=== PATIENT | male | born 1990 | race Caucasian/White ===

== ENCOUNTER 2022-07-06 10:40 | Emergency (ER) | payer BC, SELFPAY ==
[2022-07-06 10:46] VITALS: BP 140/92; PULSE 85; O2SAT 100
[2022-07-06 10:49] VITALS: BP 140/92; PULSE 75; RESP 16; O2SAT 100; BMI 24.3
--- NOTE | 2022-07-06 10:55 | DI.RAD.S_ITS ---
PROCEDURE: XR CHEST 1V INDICATIONS: chest pain TECHNIQUE: One view of the chest was acquired. COMPARISON: None. FINDINGS: Surgical changes and devices: None. Lungs and pleura: Lungs are clear. No pleural effusions or pneumothorax. Mediastinum: Mediastinal contours appear normal. Heart size is normal. Bones and chest wall: No suspicious bony lesions. Overlying soft tissues appear unremarkable. IMPRESSION: No acute cardiopulmonary abnormality. Approved by: Norm Arroyo M.D. on 07/06/2022 at 11:07
[2022-07-06 11:00] VITALS: PULSE 70; O2SAT 100
[2022-07-06 11:11] LABS: Add Manual Diff / Slide Review NO; Basophils Absolute Auto 0 /uL (0-100); Basophils Percent Auto 0.6 % (0-2); Eosinophils Absolute Auto 100 /uL (0-450); Eosinophils Percent Auto 1.3 % (2-4); Hematocrit 46.5 % (41-53); Hemoglobin 15.9 g/dL (13.5-17.5); Lymphocytes Absolute Auto 2100 /uL (1100-4500); Mean Corpuscular HGB Conc 34.2 % (30-36); Mean Corpuscular Hemoglobin 29.3 PG (26-34); Mean Corpuscular Volume 85.7 fL (80-100); Monocytes Absolute Auto 800 /uL (0-900); Monocytes Percent Auto 12.4 % (3-14); Neutrophils Absolute Auto 3100 /uL (1500-7000); Neutrophils Percent Auto 51.7 % (50-75); Platelet Count 184 X10^3/uL (150-400); Red Blood Cell Count 5.42 X10^6/uL (4.5-5.9); Red Cell Distribution Width 13.8 % (11.6-14.8)
[2022-07-06 11:20] LABS: INR 1.2 (0.9-1.3); Prothrombin Time 13.5 SECONDS (10.1-12.7)
[2022-07-06 11:22] LABS: D Dimer 236 ng/ml (<500)
[2022-07-06 11:23] LABS: PTT Partial Thromboplastin Tim 33 SECONDS (26-36)
[2022-07-06 11:24] LABS: Alanine Aminotransferase 44 IU/L (<50); Albumin 4.6 g/dL (3.5-5.0); Albumin Globulin Ratio 1.3 (1.0-2.8); Alkaline Phosphatase 75 U/L (38-126); Aspartate Aminotransferase 34 IU/L (17-59); BUN Creatinine Ratio 15.4 (6-22); Bilirubin Total 0.7 mg/dL (0.2-1.3); Blood Urea Nitrogen 12 mg/dL (9-20); Calcium 9.2 mg/dL (8.4-10.2); Carbon Dioxide 29 mmol/L (22-32); Chloride 101 mmol/L (98-107); Creatine Kinase 62 U/L (55-170); Estimated Glomerular Filt Rate > 60 mL/min (>60); Globulin 3.5 g/dL (1.7-4.1); Glucose 103 mg/dL (70-100); HEMOLYSIS < 15 (0-50); Lipase 100 U/L (23-300); Magnesium 2.2 mg/dL (1.6-2.3); Potassium 4.1 mmol/L (3.4-5.1); Sodium 139 mmol/L (137-145); Total Protein 8.1 g/dL (6.3-8.2)
[2022-07-06 11:30] VITALS: PULSE 67; O2SAT 100
[2022-07-06 11:35] LABS: Troponin I < 0.012 ng/mL (0.01-0.034)
[2022-07-06 12:00] VITALS: PULSE 73; O2SAT 98
--- NOTE | 2022-07-06 12:01 | ED_ITS ---
HPI - Chest Pain General Chief Complaint: Chest Pain Stated Complaint: sent from [facility]chest pressure Time Seen by Provider: 07/06/22 10:51 History of Present Illness HPI narrative: Patient is a 32-year-old male who has no past medical history presenting today with upper respiratory like symptoms and chest pressure. He reports that he had his 4th COVID booster 2 weeks ago since then he is had some upper respiratory like symptoms mild cough no fever and this morning he had some chest pressure. He went to a walk-in clinic run EKG was done and he was sent to the ED for further evaluation. Chest pressure is nonradiating it is very centralized. He denies any nausea vomiting shortness of breath. He did just get back from [place] for a . Related Data Allergies Allergy/AdvReac Type Severity Reaction Status Date / Time No Known Drug Allergies Allergy Verified 07/06/22 10:49 Review of Systems Review of Systems ROS Unobtainable: All systems reviewed & are unremarkable except as noted in HPI and below Exam Initial Vital Signs Initial Vital Signs: Vital Signs Pulse Rate 85 07/06/22 10:46 Blood Pressure 140/92 H 07/06/22 10:46 Pulse Oximetry 100 07/06/22 10:46 GENERAL: Alert pleasant well-appearing 32-year-old male and in no acute distress. HEENT: Head atraumatic,EOMI, pupils reactive, face symmetric, moist mucous membranes CARDIOVASCULAR: Regular rate and rhythm without murmurs, rubs or gallops. RESPIRATORY: Breath sounds equal bilaterally, no wheezes rales or rhonchi. ABDOMEN: Soft, nontender. Normoactive bowel sounds all 4 quadrants. No guarding or rebound. EXTREMITIES: Normal range of motion, no clubbing or edema. Neurovascularly intact NEUROLOGICAL: Alert and oriented x4. SKIN: Warm, dry, no laceration, no petechiae, no rashes or lesions. Scores PERC Score Age greater than or equal to 50 years: No Heart rate greater than or equal to 100 bpm: No Room Air O2 Sat less than 95%: No Unilateral leg swelling: No Recent trauma or surgery: No Hemoptysis: No Prior PE or DVT: No Hormone Use: No Total PERC Score: 0 Course Orders Ordered: ED Orders 07/06/22 10:55 XR chest 1V Stat EKG-12 Lead Stat 07/06/22 11:00 Complete Blood Count AUTO DIFF Stat Comprehensive Metabolic Panel Stat D Dimer Stat Lipase Stat Magnesium Stat PTT Partial Thromboplastin Scooter Stat Prothrombin Time INR Stat Troponin & CK Cardiac Panel Stat 07/06/22 11:30 COVID19 -Nasal RAPID Stat Vital Signs Vital signs: Vital Signs - 8 hr 07/06/22 10:49 07/06/22 10:46 07/06/22 10:46 Pulse Rate 75 85 Respiratory Rate 16 Blood Pressure 140/92 H 140/92 H Pulse Oximetry 100 100 Oxygen Delivery Method Room Air 07/06/22 11:00 07/06/22 11:30 07/06/22 12:00 Pulse Rate 70 67 73 Respiratory Rate Blood Pressure Pulse Oximetry 100 100 98 Oxygen Delivery Method 07/06/22 12:28 07/06/22 12:28 Pulse Rate 71 Respiratory Rate Blood Pressure 130/87 Pulse Oximetry 100 Oxygen Delivery Method Room Air MDM - Chest Pain Lab Data 07/06/22 11:00 07/06/22 11:00 Labs: Lab Results 07/06/22 07/06/22 07/06/22 Range/Units 11:00 11:00 11:00 WBC 6.0 (4.5-11.0) X10^3/uL RBC 5.42 (4.5-5.9) X10^6/uL Hgb 15.9 (13.5-17.5) g/dL Hct 46.5 (41-53) % MCV 85.7 (80-100) fL MCH 29.3 (26-34) PG MCHC 34.2 (30-36) % RDW 13.8 (11.6-14.8) % Plt Count 184 (150-400) X10^3/uL Neut % (Auto) 51.7 (50-75) % Lymph % (Auto) 34.0 (25-40) % Hutchinson % (Auto) 12.4 (3-14) % Eos % (Auto) 1.3 L (2-4) % Baso % (Auto) 0.6 (0-2) % Neut # (Auto) 3100 (9031-2073) /uL Lymph # (Auto) 2100 (3744-1246) /uL Hutchinson # (Auto) 800 (0-900) /uL Eos # (Auto) 100 (0-450) /uL Baso # (Auto) 0 (0-100) /uL PT 13.5 H (10.1-12.7) SECONDS INR 1.2 (0.9-1.3) APTT 33 (26-36) SECONDS D-Dimer 236 (<500) ng/ml Sodium 139 (137-145) mmol/L Potassium 4.1 (3.4-5.1) mmol/L Chloride 101 (98-107) mmol/L Carbon Dioxide 29 (22-32) mmol/L BUN 12 (9-20) mg/dL Creatinine 0.78 (0.66-1.25) mg/dL Estimated GFR > 60 (>60) mL/min BUN/Creatinine Ratio 15.4 (6-22) Glucose 103 H (70-100) mg/dL Calcium 9.2 (8.4-10.2) mg/dL Magnesium 2.2 (1.6-2.3) mg/dL Total Bilirubin 0.7 (0.2-1.3) mg/dL AST 34 (17-59) IU/L ALT 44 (<50) IU/L Alkaline Phosphatase 75 (38-126) U/L Total Creatine Kinase 62 (55-170) U/L CK-MB (CK-2) TNP CK-MB (CK-2) Rel Index TNP Troponin I < 0.012 (0.01-0.034) ng/mL Total Protein 8.1 (6.3-8.2) g/dL Albumin 4.6 (3.5-5.0) g/dL Globulin 3.5 (1.7-4.1) g/dL Albumin/Globulin Ratio 1.3 (1.0-2.8) Lipase 100 (23-300) U/L SARS-CoV-2 (PCR) (Negative) 07/06/22 Range/Units 11:30 WBC (4.5-11.0) X10^3/uL RBC (4.5-5.9) X10^6/uL Hgb (13.5-17.5) g/dL Hct (41-53) % MCV (80-100) fL MCH (26-34) PG MCHC (30-36) % RDW (11.6-14.8) % Plt Count (150-400) X10^3/uL Neut % (Auto) (50-75) % Lymph % (Auto) (25-40) % Hutchinson % (Auto) (3-14) % Eos % (Auto) (2-4) % Baso % (Auto) (0-2) % Neut # (Auto) (3528-0848) /uL Lymph # (Auto) (6636-1555) /uL Hutchinson # (Auto) (0-900) /uL Eos # (Auto) (0-450) /uL Baso # (Auto) (0-100) /uL PT (10.1-12.7) SECONDS INR (0.9-1.3) APTT (26-36) SECONDS D-Dimer (<500) ng/ml Sodium (137-145) mmol/L Potassium (3.4-5.1) mmol/L Chloride (98-107) mmol/L Carbon Dioxide (22-32) mmol/L BUN (9-20) mg/dL Creatinine (0.66-1.25) mg/dL Estimated GFR (>60) mL/min BUN/Creatinine Ratio (6-22) Glucose (70-100) mg/dL Calcium (8.4-10.2) mg/dL Magnesium (1.6-2.3) mg/dL Total Bilirubin (0.2-1.3) mg/dL AST (17-59) IU/L ALT (<50) IU/L Alkaline Phosphatase (38-126) U/L Total Creatine Kinase (55-170) U/L CK-MB (CK-2) CK-MB (CK-2) Rel Index Troponin I (0.01-0.034) ng/mL Total Protein (6.3-8.2) g/dL Albumin (3.5-5.0) g/dL Globulin (1.7-4.1) g/dL Albumin/Globulin Ratio (1.0-2.8) Lipase (23-300) U/L SARS-CoV-2 (PCR) Negative (Negative) Imaging Data Chest x-ray: Radiologist's Impression: PROCEDURE:? XR CHEST 1V ? INDICATIONS:? chest pain ? TECHNIQUE:? One view of the chest was acquired.? ? COMPARISON:? None. ? FINDINGS:? ? Surgical changes and devices:? None.? ? Lungs and pleura:? Lungs are clear.? No pleural effusions or pneumothorax.? ? Mediastinum:? Mediastinal contours appear normal.? Heart size is normal.? ? Bones and chest wall:? No suspicious bony lesions.? Overlying soft tissues appear unremarkable.? ? IMPRESSION:? No acute cardiopulmonary abnormality. ? ? ? Approved by: Norm Arroyo M.D. on 07/06/2022 at 11:07? ECG Data Interpretation: Normal sinus rhythm rate 70 TN interval 140 QRS [address] elevations, peaked T-waves in V2 and V3 but looks similar to previous EKG at clinic no real ST depression MDM Narrative Medical decision making narrative: Patient 32-year-old male sent in from the walk-in clinic for some chest discomfort. He had a COVID booster 2 weeks ago now having upper respiratory like symptoms. He did have peak T-wave wave on EKG, but no evidence of pericarditis, patient presentation also not consistent. X-ray is clear for pneumonia or pneumothorax. Troponin is negative. Blood work is otherwise reassuring without anemia leukocytosis electrolyte abnormality or DOMINGUEZ. D-dimer is also negative with a negative PERC score unlikely to be pulmonary embolism. He also tested negative for COVID today. At this time I think most likely to be a viral syndrome or atypical like chest pain. Patient's vitals are stable he is not hypoxic or tachycardic an otherwise healthy without comorbidities or risk factors Discharge Plan Departure Patient Disposition: Home Clinical Impression: Atypical chest pain Instructions: DI for Atypical Chest Pain Activity Restrictions/Additional Instructions: *You have been diagnosed with atypical chest pain *What to do: At this time unclear what caused ear chest discomfort today. But no sign of pneumonia no need for antibiotic. Blood work is overall reassuring *Continue to take medications as directed *Follow up with your primary care provider in 2-3 days or call [phone] *Return to ER if you should have increasing chest pain shortness of breath or any new, worsening or concerning symptoms Referrals: Christy,MD Pilar [Primary Care Provider] - Stand Alone Forms: Patient Portal/API
[2022-07-06 12:02] LABS: COVID19 -Nasal RAPID Negative (Negative)
[2022-07-06 12:28] VITALS: BP 130/87; PULSE 71; O2SAT 100
== END 2022-07-06 12:30 | disposition home or self-care (01) ==
PROVIDERS: Emergency Provider Emergency Medicine
DX: R07.89 Other chest pain (principal); Z20.822 Contact with and (suspected) exposure to COVID-19
CPT/HCPCS: 36415; 71045; 80053; 82550; 83690; 83735; 84484; 85025; 85379; 85610; 85730; 87635; 93005; 99284; C9803

== ENCOUNTER 2022-11-02 17:49 | Emergency (ER) | payer BC, SELFPAY ==
[2022-11-02 18:12] VITALS: BP 144/79; PULSE 74; RESP 18; TEMP 36.7; O2SAT 98; BMI 23.3
--- NOTE | 2022-11-02 19:24 | DI.CT.S_ITS ---
PROCEDURE: CT HEAD/BRAIN WO CON INDICATIONS: headache, eye/ visual disturbance TECHNIQUE: Noncontrast 4.5 mm thick angled axial sections acquired from the foramen magnum to the vertex, with coronal and sagittal reformats. For radiation dose reduction, the following was used: automated exposure control, adjustment of mA and/or kV according to patient size. COMPARISON: None. FINDINGS: Image quality: Excellent. CSF spaces: Basal cisterns are patent. No extra-axial fluid collections. Ventricles are normal in size and shape. Brain: No midline shift. No intracranial masses or hemorrhage. Martin-white matter interface is normal. Skull and face: Calvarium and visualized facial bones are intact, without suspicious lesions. Sinuses: Visualized sinuses and mastoids are clear. IMPRESSION: 1. No acute intracranial process. Dictated by: Bridget Monroy M.D. on 11/02/2022 at 19:56 Approved by: Bridget Monroy M.D. on 11/02/2022 at 19:56
[2022-11-02] MEDS: KETOROLAC 30 MG/ML VIAL 15 MG IV (20:43)
[2022-11-02 20:54] LABS: Add Manual Diff / Slide Review NO; Basophils Absolute Auto 0 /uL (0-100); Basophils Percent Auto 0.4 % (0-2); Eosinophils Absolute Auto 100 /uL (0-450); Eosinophils Percent Auto 0.8 % (2-4); Hematocrit 44.1 % (41-53); Hemoglobin 15.2 g/dL (13.5-17.5); Lymphocytes Absolute Auto 2500 /uL (1100-4500); Lymphocytes Percent Auto 32.7 % (25-40); Mean Corpuscular HGB Conc 34.4 % (30-36); Mean Corpuscular Volume 87.1 fL (80-100); Monocytes Absolute Auto 500 /uL (0-900); Neutrophils Absolute Auto 4600 /uL (1500-7000); Neutrophils Percent Auto 59.1 % (50-75); Platelet Count 172 X10^3/uL (150-400); Red Blood Cell Count 5.07 X10^6/uL (4.5-5.9); Red Cell Distribution Width 14.2 % (11.6-14.8); White Blood Cell Count 7.7 X10^3/uL (4.5-11.0)
[2022-11-02 20:59] LABS: Alanine Aminotransferase 20 IU/L (<50); Albumin 4.8 g/dL (3.5-5.0); Albumin Globulin Ratio 1.5 (1.0-2.8); Alkaline Phosphatase 58 U/L (38-126); Aspartate Aminotransferase 25 IU/L (17-59); BUN Creatinine Ratio 16.1 (6-22); Bilirubin Total 0.9 mg/dL (0.2-1.3); Blood Urea Nitrogen 15 mg/dL (9-20); Calcium 9.2 mg/dL (8.4-10.2); Carbon Dioxide 31 mmol/L (22-32); Chloride 101 mmol/L (98-107); Estimated Glomerular Filt Rate > 60 mL/min (>60); Globulin 3.3 g/dL (1.7-4.1); Glucose 102 mg/dL (70-100); HEMOLYSIS 16 (0-50); Lipase 118 U/L (23-300); Potassium 4.4 mmol/L (3.4-5.1); Sodium 140 mmol/L (137-145); Total Protein 8.1 g/dL (6.3-8.2)
[2022-11-02] MEDS: SODIUM CHLORIDE 0.9% 1,000 ML 1000 ML IV (22:46)
--- NOTE | 2022-11-02 23:46 | ED.HA ---
HPI - Headache General Chief Complaint: Headache Stated Complaint: HEAD PRESSURE, NECK STIFFNESS,ROTARY STIGMAS L EYE Time Seen by Provider: 11/02/22 23:45 Mode of arrival: Family Vehicle History of Present Illness HPI Narrative: 32-year-old gentleman who initially presented to his eye doctor complaining of left eye issues. the eye doctor was concerned with rotatory nystagmus and an MRI of the brain is scheduled for November 04. In the interval he reports today complaining of increasing head pressure and obvious concern over the upcoming MRI and potential diagnosis. Related Data Allergies Allergy/AdvReac Type Severity Reaction Status Date / Time No Known Drug Allergies Allergy Verified 11/02/22 18:18 Review of Systems Review of Systems Narrative: Pertinent positive and negative findings as per HPI Patient History Social History Smoking Status: Never smoker Smoking Status: Never smoker alcohol intake frequency: 0-2 drinks per day Substance Use Type: does not use Exam Initial Vital Signs Initial Vital Signs: Vital Signs Temperature 98.1 F 11/02/22 18:12 Pulse Rate 74 11/02/22 18:12 Respiratory Rate 18 11/02/22 18:12 Blood Pressure 144/79 H 11/02/22 18:12 Pulse Oximetry 98 11/02/22 18:12 Oxygen Delivery Method Room Air 11/02/22 18:12 General: Healthy appearing, in no acute distress. Able to give a complete and coherent history. Well-nourished well-developed HEENT: Moist mucous membranes, normal sclera with reactive pupils, no nystagmus with provocative maneuvers Neck: No carotid bruits supple Respiratory: Lungs are clear to auscultation, no wheezing no rales no rhonchi. Full and symmetrical air movement Cardiac: Regular rate and rhythm no murmurs no bruits Abdomen: Soft, nontender, good bowel tones, no flank pain Skin: Warm and dry, no rashes Neurologic: Grossly neurologically intact with no obvious asymmetries or abnormalities Extremities: No trauma, well perfused Psych: Cooperative, appropriate insight and affect Course Orders Ordered: Discontinued Medications Sodium Chloride (Normal Saline 0.9%) 1,000 mls @ 1,000 mls/hr IV BOLUS ONE Stop: 11/02/22 21:21 Last Infusion: 11/03/22 00:06 Dose: 0 mls/hr Documented By: Admin: 11/02/22 22:46 Dose: 1,000 mls/hr Documented By: GC Ketorolac Tromethamine (Ketorolac 30 Mg/Ml Vial) 15 mg IV NOW ONE Stop: 11/02/22 20:23 Last Admin: 11/02/22 20:43 Dose: 15 mg Documented By: LATOYA Ondansetron HCl (Ondansetron 4 Mg Odt) 4 mg PO NOW PRN PRN Reason: Nausea And Vomiting Ondansetron HCl (Ondansetron 4 Mg/2 Ml Inj) 4 mg IV NOW PRN PRN Reason: Nausea And Vomiting Vital Signs Vital signs: Vital Signs - 8 hr 11/03/22 00:07 Pulse Rate 55 L Respiratory Rate 16 Blood Pressure 127/79 Pulse Oximetry 97 Oxygen Delivery Method Room Air MDM - Headache Lab Data 11/02/22 20:39 11/02/22 20:39 Labs: Lab Results 11/02/22 11/02/22 Range/Units 20:39 20:39 WBC 7.7 (4.5-11.0) X10^3/uL RBC 5.07 (4.5-5.9) X10^6/uL Hgb 15.2 (13.5-17.5) g/dL Hct 44.1 (41-53) % MCV 87.1 (80-100) fL MCH 30.0 (26-34) PG MCHC 34.4 (30-36) % RDW 14.2 (11.6-14.8) % Plt Count 172 (150-400) X10^3/uL Neut % (Auto) 59.1 (50-75) % Lymph % (Auto) 32.7 (25-40) % [place] % (Auto) 7.0 (3-14) % Eos % (Auto) 0.8 L (2-4) % Baso % (Auto) 0.4 (0-2) % Neut # (Auto) 4600 (5540-8091) /uL Lymph # (Auto) 2500 (0343-7397) /uL [place] # (Auto) 500 (0-900) /uL Eos # (Auto) 100 (0-450) /uL Baso # (Auto) 0 (0-100) /uL Sodium 140 (137-145) mmol/L Potassium 4.4 (3.4-5.1) mmol/L Chloride 101 (98-107) mmol/L Carbon Dioxide 31 (22-32) mmol/L BUN 15 (9-20) mg/dL Creatinine 0.93 (0.66-1.25) mg/dL Estimated GFR > 60 (>60) mL/min BUN/Creatinine Ratio 16.1 (6-22) Glucose 102 H (70-100) mg/dL Calcium 9.2 (8.4-10.2) mg/dL Total Bilirubin 0.9 (0.2-1.3) mg/dL AST 25 (17-59) IU/L ALT 20 (<50) IU/L Alkaline Phosphatase 58 (38-126) U/L Total Protein 8.1 (6.3-8.2) g/dL Albumin 4.8 (3.5-5.0) g/dL Globulin 3.3 (1.7-4.1) g/dL Albumin/Globulin Ratio 1.5 (1.0-2.8) Lipase 118 (23-300) U/L MDM Narrative Medical decision making narrative: CC: Left eye twitching now with pressure behind the left eye Complicating co-morbidities: Moving shortly to [place], stresses of relocating, finding a new home, they have an 8-month-old child Data collected from: patient, Differential considered: Anxiety, nystagmus, brain tumor or mass effect, electrolyte abnormalities Exam documented above, pertinent findings include: Completely benign exam Lab Test results independently reviewed as above. Pertinent findings: CBC is unremarkable Metabolic panel is unremarkable Imaging studies independently reviewed: CT scan of the head shows no acute intracranial findings Treatments: Given fluids, Toradol and IV Zofran with resolution of his symptoms Discussion: 32-year-old gentleman with increased psychosocial stressors, eye twitching and concern over possibility of brainstem abnormality with MRI scheduled for November 04. Today noted increased pressure and headache was treated with fluids Toradol and Zofran significantly improve. Lab work and CT scan are reassuring. Discussed with him the difference between CT and MRI in terms of brain pathology and encouraged him to keep the scheduled MRI in 2 days. This point there is no evidence of life-threatening abnormality, need for advanced imaging or hospitalization and he is safe for discharge Discharge Plan Departure Patient Disposition: Home Clinical Impression: Headache Instructions: DI for Headache Activity Restrictions/Additional Instructions: Thank you for coming in today I am glad your immediate headache is feeling somewhat better. With the blood work and CT scan that we did in the emergency department I did not find anything life-threatening. Please make sure you keep your MRI appointment to get a closer look at your brainstem as the director television news was concerned that there may be an issue that is causing the twitching in your left eye. If you find that you are getting worse or develop any new symptoms, please feel free to return to the emergency department for further evaluation. Good luck with the relocation to [place]! Stand Alone Forms: Patient Portal/API
[2022-11-03 00:07] VITALS: BP 127/79; PULSE 55; RESP 16; O2SAT 97
== END 2022-11-03 00:08 | disposition home or self-care (01) ==
PROVIDERS: Emergency Provider Emergency Medicine
DX: R51.9 Headache, unspecified (principal); H53.9 Unspecified visual disturbance
CPT/HCPCS: 36415; 70450; 80053; 83690; 85025; 96361; 96374; 99284; J1885